=== PATIENT | male | born 1935 | race Caucasian/White ===

== ENCOUNTER 2023-01-30 20:59 | Inpatient (IN) | payer MEDICARE ==
[2023-01-30 21:20] LABS: #Basophils 0.1 thou/uL (0.0-0.2); #Eosinphils 0.3 thou/uL (0.0-0.7); #Lymphocytes 2.7 thou/uL (1.20-3.40); #Monocytes 0.9 thou/uL (0.11-0.59); #Neutrophils 5.9 thou/uL (1.40-6.50); %Basophils 0.5 % (0.0-1.0); %Eosinophils 3.1 % (0.0-10.0); %Lymphocytes 27.7 % (21.0-51.0); %Monocytes 8.7 % (0.0-10.0); Hemoglobin 10.2 g/dL (14.0-18.0); Mean Corpuscular Hemoglobin 33.8 pg (27.0-31.0); Mean Platelet Volume 8.4 fL (7.4-10.4); Platelet Count 173 10x3/uL (130-400); RBC Distribution Width 13.2 % (11.5-14.5); Red Blood Cell (RBC) Count 3.03 mill/uL (4.70-6.10); White Blood Cell (WBC) Count 9.8 10x3/uL (4.8-10.8)
[2023-01-30 21:40] LABS: ALT (SGPT) 21 U/L (8-55); AST (SGOT) 22 U/L (5-34); Albumin 3.8 g/dL (3.4-4.8); Alkaline Phosphatase 128 U/L (40-110); Anion Gap 19 mmol/L (10-20); BUN (Urea Nitrogen) 30 mg/dL (8.4-25.7); Bilirubin, Total 0.3 mg/dL (0.2-1.2); CK (CPK) 74 U/L (30-200); Calc. Creatinine Clearance 0 mL/min (70-130); Calcium 9.5 mg/dL (7.8-10.44); Carbon Dioxide 15 mmol/L (23-31); Chloride 107 mmol/L (98-107); Estimated GFR 42; Globulin 3.6 g/dL (2.4-3.5); Glucose 93 mg/dL (83-110); Potassium 3.6 mmol/L (3.5-5.1); Protein, Total 7.4 g/dL (5.8-8.1); Sodium 137 mmol/L (136-145)
[2023-01-30 21:52] LABS: INR-International Normal Ratio 1.1; PTT 23.3 sec (22.9-36.1); Prothrombin Time 14.3 sec (12.0-14.7)
[2023-01-30] MEDS ORDERED: ADMIXTURE FEE IV SCH (22:00)
[2023-01-30] MEDS ORDERED: HUMAN PROTHROMBIN COMPLX IV SCH (22:00)
[2023-01-30] MEDS ORDERED: Morphine 2 MG/ML VIAL ONE (22:20)
[2023-01-30] MEDS ORDERED: Insulin Regular 300 UNITS/3 ML VIAL SC PRN (22:28)
[2023-01-30] MEDS ORDERED: Morphine 2 MG/ML VIAL SLOW IVP PRN (22:28)
[2023-01-30] MEDS ORDERED: Dextrose 50% Abboject 50 ML SYRINGE SLOW IVP PRN (22:28)
[2023-01-30] MEDS ORDERED: Ondansetron PF 4 MG/2 ML Vial IVP PRN (22:28)
[2023-01-30] MEDS ORDERED: Dextrose 5% in Water 1,000 ML IV PRN (22:28)
[2023-01-30 22:30] LABS: #Basophils 0.1 thou/uL (0.0-0.2); #Eosinphils 0.1 thou/uL (0.0-0.7); #Lymphocytes 1.5 thou/uL (1.20-3.40); #Monocytes 0.9 thou/uL (0.11-0.59); #Neutrophils 7.8 thou/uL (1.40-6.50); %Basophils 0.5 % (0.0-1.0); %Eosinophils 1.4 % (0.0-10.0); %Lymphocytes 14.4 % (21.0-51.0); %Monocytes 8.5 % (0.0-10.0); %Neutrophils 75.3 % (42.0-75.0); Hemoglobin 10.7 g/dL (14.0-18.0); Mean Corpuscular HGB CONC 33.3 g/dL (32.0-36.0); Mean Corpuscular Hemoglobin 33.6 pg (27.0-31.0); Mean Platelet Volume 8.2 fL (7.4-10.4); Platelet Count 174 10x3/uL (130-400); RBC Distribution Width 13.3 % (11.5-14.5); Red Blood Cell (RBC) Count 3.17 mill/uL (4.70-6.10); White Blood Cell (WBC) Count 10.3 10x3/uL (4.8-10.8)
[2023-01-30] MEDS ORDERED: Sodium Chloride 0.9% 1,000 ML IV SCH (22:30)
[2023-01-30] MEDS ORDERED: Acetaminophen/Codeine 30-300mg Tablet PO PRN (22:32)
[2023-01-30 22:51] LABS: ALT (SGPT) 22 U/L (8-55); AST (SGOT) 22 U/L (5-34); Albumin 3.7 g/dL (3.4-4.8); Alkaline Phosphatase 127 U/L (40-110); Anion Gap 17 mmol/L (10-20); BUN (Urea Nitrogen) 31 mg/dL (8.4-25.7); Bilirubin, Total 0.4 mg/dL (0.2-1.2); Calc. Creatinine Clearance 0 mL/min (70-130); Calcium 9.6 mg/dL (7.8-10.44); Carbon Dioxide 19 mmol/L (23-31); Chloride 105 mmol/L (98-107); Estimated GFR 44; Globulin 3.7 g/dL (2.4-3.5); Glucose 100 mg/dL (83-110); Potassium 3.8 mmol/L (3.5-5.1); Protein, Total 7.4 g/dL (5.8-8.1); Sodium 137 mmol/L (136-145)
[2023-01-31] MEDS: hydrALAZINE 20 MG/ML VIAL SLOW IVP PRN ×3 (00:18→22:18)
[2023-01-31 01:07] LABS: Bacteria/HPF None Seen HPF (None Seen); Bilirubin Negative (Negative); Blood, Urine Negative (Negative); CAUTI Indications for Culture Alt mental st,lethar; Clarity Clear (Clear); Glucose, Urine (Dipstick) Normal (Negative); Ketone, Urine Negative (Negative); Leukocyte Negative Leu/uL (Negative); Nitrite Negative (Negative); Protein, Urine (Dipstick) Negative (Neg-Trace); RBC/HPF 0-3 HPF (0-3); Specific Gravity, Urine 1.008 (1.002-1.036); Squamous Epithelial None Seen HPF (0-3); Urobilinogen Normal mg/dL (Less than 2); WBC/HPF 0-3 HPF (0-3); pH, Urine 6.5 (5.0-9.0)
[2023-01-31 01:09] LABS: Urine Culture Reflex No No
[2023-01-31 01:12] LABS: Lactic Acid 1.6 mmol/L (0.5-2.2)
[2023-01-31] MEDS: Acetaminophen 325 MG TAB PO SCH ×5 (01:13→22:31)
[2023-01-31 04:31] LABS: #Lymphocytes 1.2 thou/uL (1.20-3.40); #Monocytes 0.9 thou/uL (0.11-0.59); #Neutrophils 8.3 thou/uL (1.40-6.50); %Basophils 0.1 % (0.0-1.0); %Eosinophils 0.3 % (0.0-10.0); %Lymphocytes 11.9 % (21.0-51.0); %Monocytes 8.6 % (0.0-10.0); %Neutrophils 79.1 % (42.0-75.0); Hemoglobin 10.3 g/dL (14.0-18.0); Mean Corpuscular HGB CONC 31.5 g/dL (32.0-36.0); Mean Corpuscular Hemoglobin 31.6 pg (27.0-31.0); Mean Platelet Volume 9.3 fL (7.4-10.4); Platelet Count 164 10x3/uL (130-400); RBC Distribution Width 13.4 % (11.5-14.5); Red Blood Cell (RBC) Count 3.27 mill/uL (4.70-6.10); White Blood Cell (WBC) Count 10.5 10x3/uL (4.8-10.8)
[2023-01-31 04:58] LABS: Anion Gap 16 mmol/L (10-20); BUN (Urea Nitrogen) 27 mg/dL (8.4-25.7); Calc. Creatinine Clearance 43 mL/min (70-130); Calcium 9.6 mg/dL (7.8-10.44); Carbon Dioxide 20 mmol/L (23-31); Chloride 106 mmol/L (98-107); Estimated GFR 55; Glucose 100 mg/dL (83-110); Magnesium 1.6 mg/dL (1.6-2.6); Phosphorus 3.9 mg/dL (2.3-4.7); Potassium 4.4 mmol/L (3.5-5.1); Sodium 138 mmol/L (136-145)
[2023-01-31] MEDS: Mometasone 100 MCG/Formoterol 5 MCG 120 PUFF INHALER INH SCH ×2 (07:23→19:13)
[2023-01-31] MEDS: Polyethylene Glycol 3350 17 GM Packet PO SCH (09:30)
[2023-01-31] MEDS: Famotidine/PF 20 mg/2ml Vial SLOW IVP SCH ×2 (09:30→22:24)
[2023-01-31] MEDS ORDERED: Magnesium Sulfate In Water 4 GM in Premix Bag 1 BAG IVPB SCH (13:45)
[2023-01-31] MEDS: Oxazepam 10 MG CAP PO SCH ×2 (14:57→22:31)
[2023-01-31] MEDS: Senokot S 8.6-50 MG TAB PO SCH ×2 (15:02→22:31)
[2023-01-31] MEDS ORDERED: Midazolam HCl 2 mg/2 ml Vial SLOW IVP PRN (18:33)
[2023-01-31] MEDS ORDERED: Haloperidol Lactate 5 MG/ML VIAL SLOW IVP SCH (20:30)
[2023-01-31] MEDS: QUEtiapine 25 MG TAB PO SCH (22:24)
[2023-01-31] MEDS: Donepezil HCl 10 MG TAB PO SCH (22:24)
[2023-01-31] MEDS: Melatonin 3 MG TAB PO SCH (22:24)
[2023-01-31] MEDS: Tamsulosin HCl 0.4 MG CAP PO SCH (22:25)
[2023-01-31] MEDS: Magnesium Oxide 400 MG TAB PO SCH (22:31)
[2023-01-31] MEDS: Atorvastatin Calcium 40 MG TAB PO SCH (22:31)
[2023-02-01] MEDS: Oxazepam 10 MG CAP PO SCH ×3 (06:13→22:30)
[2023-02-01] MEDS: Acetaminophen 325 MG TAB PO SCH ×3 (06:13→18:59)
[2023-02-01] MEDS: Mometasone 100 MCG/Formoterol 5 MCG 120 PUFF INHALER INH SCH ×2 (07:29→19:01)
[2023-02-01] MEDS: Allopurinol 300 MG TAB PO SCH (14:07)
[2023-02-01] MEDS: Famotidine/PF 20 mg/2ml Vial SLOW IVP SCH ×2 (14:07→20:09)
[2023-02-01] MEDS: Folic Acid 1 MG TAB PO SCH (14:08)
[2023-02-01] MEDS: Thiamine 100 MG TAB PO SCH (14:08)
[2023-02-01] MEDS: Polyethylene Glycol 3350 17 GM Packet PO SCH (14:08)
[2023-02-01] MEDS: Senokot S 8.6-50 MG TAB PO SCH ×2 (14:08→21:55)
[2023-02-01] MEDS: Lorazepam 2 MG/ML VIAL SLOW IVP PRN ×2 (14:40→18:45)
[2023-02-01] MEDS: Magnesium Oxide 400 MG TAB PO SCH (21:54)
[2023-02-01] MEDS: Donepezil HCl 10 MG TAB PO SCH (21:54)
[2023-02-01] MEDS: QUEtiapine 25 MG TAB PO SCH (21:54)
[2023-02-01] MEDS: Atorvastatin Calcium 40 MG TAB PO SCH (21:54)
[2023-02-01] MEDS: Melatonin 3 MG TAB PO SCH (21:54)
[2023-02-01] MEDS: Tamsulosin HCl 0.4 MG CAP PO SCH (21:55)
[2023-02-02] MEDS: Acetaminophen 325 MG TAB PO SCH ×4 (00:24→17:20)
[2023-02-02] MEDS: hydrALAZINE 20 MG/ML VIAL SLOW IVP PRN (04:20)
[2023-02-02] MEDS: Lorazepam 2 MG/ML VIAL SLOW IVP PRN (04:35)
[2023-02-02] MEDS: Oxazepam 10 MG CAP PO SCH ×3 (06:02→21:24)
[2023-02-02] MEDS: Mometasone 100 MCG/Formoterol 5 MCG 120 PUFF INHALER INH SCH ×2 (07:35→18:57)
[2023-02-02] MEDS: Allopurinol 300 MG TAB PO SCH (09:30)
[2023-02-02] MEDS: Thiamine 100 MG TAB PO SCH (09:30)
[2023-02-02] MEDS: Senokot S 8.6-50 MG TAB PO SCH ×2 (09:30→21:24)
[2023-02-02] MEDS: Folic Acid 1 MG TAB PO SCH (09:30)
[2023-02-02] MEDS: Famotidine/PF 20 mg/2ml Vial SLOW IVP SCH ×2 (09:31→21:23)
[2023-02-02] MEDS: Polyethylene Glycol 3350 17 GM Packet PO SCH (09:31)
[2023-02-02] MEDS: Atorvastatin Calcium 40 MG TAB PO SCH (21:24)
[2023-02-02] MEDS: Magnesium Oxide 400 MG TAB PO SCH (21:24)
[2023-02-02] MEDS: Melatonin 3 MG TAB PO SCH (21:24)
[2023-02-02] MEDS: Tamsulosin HCl 0.4 MG CAP PO SCH (21:25)
[2023-02-02] MEDS: Donepezil HCl 10 MG TAB PO SCH (21:25)
[2023-02-03] MEDS: Acetaminophen 325 MG TAB PO SCH ×4 (01:15→17:51)
[2023-02-03] MEDS: Sodium Chloride 0.9% 1,000 ML IV SCH ×4 (03:33→21:41)
[2023-02-03 05:24] LABS: #Basophils 0.1 thou/uL (0.0-0.2); #Eosinphils 0.1 thou/uL (0.0-0.7); #Lymphocytes 1.7 thou/uL (1.20-3.40); #Neutrophils 7.7 thou/uL (1.40-6.50); %Basophils 0.5 % (0.0-1.0); %Eosinophils 1.1 % (0.0-10.0); %Lymphocytes 15.6 % (21.0-51.0); %Monocytes 9.7 % (0.0-10.0); Hemoglobin 12.8 g/dL (14.0-18.0); Mean Corpuscular HGB CONC 33.5 g/dL (32.0-36.0); Mean Corpuscular Hemoglobin 34.2 pg (27.0-31.0); Mean Platelet Volume 9.2 fL (7.4-10.4); Platelet Count 180 10x3/uL (130-400); RBC Distribution Width 13.3 % (11.5-14.5); Red Blood Cell (RBC) Count 3.74 mill/uL (4.70-6.10); White Blood Cell (WBC) Count 10.5 10x3/uL (4.8-10.8)
[2023-02-03] MEDS: Oxazepam 10 MG CAP PO SCH ×3 (05:40→21:40)
[2023-02-03 05:54] LABS: Anion Gap 17 mmol/L (10-20); BUN (Urea Nitrogen) 29 mg/dL (8.4-25.7); Calc. Creatinine Clearance 40 mL/min (70-130); Calcium 10.3 mg/dL (7.8-10.44); Carbon Dioxide 21 mmol/L (23-31); Chloride 107 mmol/L (98-107); Estimated GFR 55; Glucose 104 mg/dL (83-110); Magnesium 1.9 mg/dL (1.6-2.6); Phosphorus 3.2 mg/dL (2.3-4.7); Sodium 141 mmol/L (136-145)
[2023-02-03] MEDS: Mometasone 100 MCG/Formoterol 5 MCG 120 PUFF INHALER INH SCH ×2 (07:05→18:53)
[2023-02-03] MEDS: Senokot S 8.6-50 MG TAB PO SCH ×2 (09:49→21:40)
[2023-02-03] MEDS: Folic Acid 1 MG TAB PO SCH (09:49)
[2023-02-03] MEDS: Polyethylene Glycol 3350 17 GM Packet PO SCH (09:50)
[2023-02-03] MEDS: Allopurinol 300 MG TAB PO SCH (09:50)
[2023-02-03] MEDS: Thiamine 100 MG TAB PO SCH (09:50)
[2023-02-03] MEDS: Atorvastatin Calcium 40 MG TAB PO SCH (21:40)
[2023-02-03] MEDS: Donepezil HCl 10 MG TAB PO SCH (21:40)
[2023-02-03] MEDS: Tamsulosin HCl 0.4 MG CAP PO SCH (21:40)
[2023-02-03] MEDS: Melatonin 3 MG TAB PO SCH (21:40)
[2023-02-03] MEDS: Magnesium Oxide 400 MG TAB PO SCH (21:40)
[2023-02-04] MEDS: Acetaminophen 325 MG TAB PO SCH ×5 (02:12→23:31)
[2023-02-04] MEDS: Oxazepam 10 MG CAP PO SCH ×3 (06:24→20:54)
[2023-02-04] MEDS: Thiamine 100 MG TAB PO SCH (10:29)
[2023-02-04] MEDS: Senokot S 8.6-50 MG TAB PO SCH ×2 (10:29→20:54)
[2023-02-04] MEDS: Allopurinol 300 MG TAB PO SCH (10:30)
[2023-02-04] MEDS: Folic Acid 1 MG TAB PO SCH (10:30)
[2023-02-04] MEDS: Mometasone 100 MCG/Formoterol 5 MCG 120 PUFF INHALER INH SCH ×2 (10:41→19:17)
[2023-02-04] MEDS: Polyethylene Glycol 3350 17 GM Packet PO SCH (10:42)
[2023-02-04] MEDS: Donepezil HCl 10 MG TAB PO SCH (20:53)
[2023-02-04] MEDS: Atorvastatin Calcium 40 MG TAB PO SCH (20:53)
[2023-02-04] MEDS: Melatonin 3 MG TAB PO SCH (20:54)
[2023-02-04] MEDS: Magnesium Oxide 400 MG TAB PO SCH (20:54)
[2023-02-04] MEDS: Tamsulosin HCl 0.4 MG CAP PO SCH (20:54)
[2023-02-05] MEDS: Acetaminophen 325 MG TAB PO SCH ×3 (05:46→18:38)
[2023-02-05] MEDS: Oxazepam 10 MG CAP PO SCH ×3 (05:49→20:45)
[2023-02-05] MEDS: Mometasone 100 MCG/Formoterol 5 MCG 120 PUFF INHALER INH SCH ×2 (08:13→19:15)
[2023-02-05] MEDS: Folic Acid 1 MG TAB PO SCH (10:03)
[2023-02-05] MEDS: Thiamine 100 MG TAB PO SCH (10:04)
[2023-02-05] MEDS: Senokot S 8.6-50 MG TAB PO SCH ×2 (10:04→20:45)
[2023-02-05] MEDS: Allopurinol 300 MG TAB PO SCH (10:05)
[2023-02-05] MEDS: Polyethylene Glycol 3350 17 GM Packet PO SCH (10:06)
[2023-02-05 13:35] VITALS: BMI 24.0
[2023-02-05] MEDS: Atorvastatin Calcium 40 MG TAB PO SCH (20:45)
[2023-02-05] MEDS: Tamsulosin HCl 0.4 MG CAP PO SCH (20:45)
[2023-02-05] MEDS: Melatonin 3 MG TAB PO SCH (20:45)
[2023-02-05] MEDS: Donepezil HCl 10 MG TAB PO SCH (20:45)
[2023-02-05] MEDS: Magnesium Oxide 400 MG TAB PO SCH (20:45)
[2023-02-06] MEDS: Acetaminophen 325 MG TAB PO SCH ×3 (01:05→11:47)
[2023-02-06 08:36] VITALS: TEMP 98.3
[2023-02-06] MEDS: Oxazepam 10 MG CAP PO SCH (09:46)
[2023-02-06] MEDS: Allopurinol 300 MG TAB PO SCH (09:46)
[2023-02-06] MEDS: Thiamine 100 MG TAB PO SCH (09:46)
[2023-02-06] MEDS: Senokot S 8.6-50 MG TAB PO SCH (09:46)
[2023-02-06] MEDS: Folic Acid 1 MG TAB PO SCH (09:46)
[2023-02-06] MEDS: Polyethylene Glycol 3350 17 GM Packet PO SCH (09:47)
[2023-02-06] MEDS: Mometasone 100 MCG/Formoterol 5 MCG 120 PUFF INHALER INH SCH (10:14)
[2023-02-06 12:18] VITALS: BP 114/75
== END 2023-02-06 14:14 | DRG 86 ==
LOC: ERS 20:59 → CCU 21:49 → IMCU/EMU 02-02 04:56 → 2NO 02-02 14:04 → SURG A 02-03 20:14
PROVIDERS: ADMIT Surgery; ATTEND Surgery
PROC: 30283B1 Transfusion of Nonautologous 4-Factor Prothrombin Complex Concentrate into Vein, Percutaneous Approach (ICD-10-PCS; principal; 2023-01-30)
DX: S06.5X0A Traumatic subdural hemorrhage without loss of consciousness, initial encounter (principal); E87.20 Acidosis, unspecified; N17.9 Acute kidney failure, unspecified; W19.XXXA Unspecified fall, initial encounter; K21.9 Gastro-esophageal reflux disease without esophagitis; E78.00 Pure hypercholesterolemia, unspecified; E78.5 Hyperlipidemia, unspecified; Z96.653 Presence of artificial knee joint, bilateral; I48.91 Unspecified atrial fibrillation; N40.0 Benign prostatic hyperplasia without lower urinary tract symptoms; N18.30 Chronic kidney disease, stage 3 unspecified; G30.9 Alzheimer's disease, unspecified; F02.80 Dementia in other diseases classified elsewhere, unspecified severity, without behavioral disturbance, psychotic disturbance, mood disturbance, and anxiety; F10.10 Alcohol abuse, uncomplicated; Z66 Do not resuscitate; Y92.9 Unspecified place or not applicable; Z98.890 Other specified postprocedural states; Z79.01 Long term (current) use of anticoagulants; Z86.73 Personal history of transient ischemic attack (TIA), and cerebral infarction without residual deficits
CPT/HCPCS: 36415; 36416; 70450; 71045; 72170; 74230; 80048; 80053; 81001; 82550; 83605; 83735; 83880; 84100; 84484; 85025; 85610; 85730; 87040; 93005; 93010; 96365; 96375; G0390; J0360; J1630; J2060; J2250; J2272; J3475; J7050; J7168; S0028